=== PATIENT | female | born 1960 | race American Indian/Alaskan Native ===

== ENCOUNTER 2017-04-14 13:48 | Emergency (ER) | payer MEDICARE ==
--- NOTE | 2017-04-14 13:58 | Emergency Department Report ---
Chief Complaint: High BP Stated Complaint: HIGH B/P - HPI History of Present Illness: PT states she has a hx of htn. PT states her daughter checked her bp at it was 221/120. Pt states she took her bp medication. PT states her left side feels weak. PT's daughter states that her L mouth is drawing up. - ROS Review of Systems: + left arm weakness + facial paralysis - Exam Physical Exam: pt alert pt unable to close left eye MSE screening note: Focused history and physical exam performed. Due to findings the following was ordered: ct, labs, ekg Patient discussed with doctor:: LANDEN GOLDEN ED Disposition for MSE Condition: Stable
[2017-04-14 14:05] VITALS: BP 218/122
== END 2017-04-14 15:46 | disposition left against medical advice (07) ==
LOC: ED 13:48
DX: I10 Essential (primary) hypertension (principal); Z53.21 Procedure and treatment not carried out due to patient leaving prior to being seen by health care provider
CPT/HCPCS: 82962; 93005; 93010